=== PATIENT | female | born 1970 | race African-American/Black ===

== ENCOUNTER 2020-06-24 12:33 | Inpatient (IN) | payer MEDICAID ==
[~2020-06-24] VITALS: Ht 170.2 cm; Wt 75.5 kg
[~2020-06-24 12:33] MED LIST: DOXYCYCLINE HY100 M2 PO; LISINOPRIL10 MG PO; SENSIPAR30 MG PO
[2020-06-24] MEDS ORDERED: TOPROL XL25 MG (12:39)
[2020-06-24 13:05] LABS: BASOPHILS 0.1 % (0-2); EOSINOPHILS 1.2 % (0-7); HEMATOCRIT 24.7 % (36.0-48.0); HEMOGLOBIN 7.8 g/dL (12-16); IMMATURE GRANULOCYTES 0.3 % (0-5); LYMPHOCYTE ABS# 0.72 10x3/uL (1.18-3.74); LYMPHOCYTES 9.7 % (15-50); MCH 26.9 pg (26.0-34.0); MCHC 31.6 g/dL (31.0-37.0); MCV 85.2 fL (80.0-100.0); MONOCYTES 3.1 % (2-11); NEUTROPHIL ABS# 6.38 10x3/uL (1.56-6.13); NEUTROPHILS 85.6 % (40-80); WBC 7.5 10x3/uL (4.8-10.8)
[2020-06-24 13:08] LABS: PLATELET COUNT 134 10x3/uL (130-400)
[2020-06-24 13:17] LABS: ALBUMIN 3.1 g/dL (3.4-5.0); ANION GAP 20.9 mmol/L (8-16); BILIRUBIN - TOTAL 0.59 mg/dL (0.2-1.3); CALCIUM 8.6 mg/dL (8.5-10.1); CARBON DIOXIDE 23.5 mmol/L (21.0-32.0); CREATININE - SERUM 17.3 mg/dL (0.6-1.3); PROTEIN - SERUM 7.1 g/dL (6.4-8.2)
[2020-06-24 13:27] LABS: POTASSIUM - SERUM 7.4 mmol/L (3.5-5.1)
--- NOTE | 2020-06-24 17:33 | NUR ---
LATE ENTRY 1630: DIALYSIS TX COMPLETE WITH 2L FLUID REMOVED. PT TOLERATED TX WELL WITH NO ISSUES. POST TX VITALS BP 107/58, HR 112, RR 17. REPORT CALLED TO ANA LILIA MCDOWELL RN. PT TRANSPORT BACK TO ER.
[2020-06-24 18:51] VITALS: BP 150/81
--- NOTE | 2020-06-24 19:03 | NUR ---
PATIENT REPORT FROM OUTGOING RN. ASSUMING CARE AT THIS TIME.
[2020-06-24 20:01] VITALS: BP 141/78
--- NOTE | 2020-06-24 20:45 | NUR ---
patient status update to patient family.
--- NOTE | 2020-06-24 21:05 | NUR ---
PATIENT RESTING IN BED AND ON THE PHONE. NAD NOTED AND A&ox4.
[2020-06-24 21:42] VITALS: BP 122/77
[2020-06-25] VITALS (7 sets, daily range): BP systolic 122–155; BP diastolic 60–91; BMI 28.2
[2020-06-25 10:12] LABS: ANION GAP 20.2 mmol/L (8-16); CALCIUM 9.2 mg/dL (8.5-10.1); CARBON DIOXIDE 24.7 mmol/L (21.0-32.0)
[2020-06-25 10:16] LABS: CREATININE - SERUM 12.3 mg/dL (0.6-1.3); POTASSIUM - SERUM 5.9 mmol/L (3.5-5.1)
--- NOTE | 2020-06-25 10:39 | NUR ---
IV TO LEFT FOREARM INFILTRATED--DC'D WITH CANULA INTACT.
[2020-06-26 02:12] VITALS: BP 156/79
[2020-06-26 06:06] VITALS: BP 133/73
[2020-06-26 06:19] LABS: BASOPHILS 0.3 % (0-2); EOSINOPHILS 0.9 % (0-7); HEMATOCRIT 26.4 % (36.0-48.0); HEMOGLOBIN 8.3 g/dL (12-16); IMMATURE GRANULOCYTES 0.1 % (0-5); LYMPHOCYTE ABS# 0.74 10x3/uL (1.18-3.74); LYMPHOCYTES 9.5 % (15-50); MCH 27.1 pg (26.0-34.0); MCHC 31.4 g/dL (31.0-37.0); MCV 86.3 fL (80.0-100.0); MEAN PLATELET VOLUME 11.3 fL (7.4-10.4); MONOCYTES 8.9 % (2-11); NEUTROPHIL ABS# 6.25 10x3/uL (1.56-6.13); NEUTROPHILS 80.3 % (40-80); RBC 3.06 10x6/uL (4.00-5.40); RDW 15.9 % (11.5-14.5); WBC 7.8 10x3/uL (4.8-10.8)
[2020-06-26 06:41] LABS: ANION GAP 24.5 mmol/L (8-16); CALCIUM 8.4 mg/dL (8.5-10.1); CARBON DIOXIDE 23.1 mmol/L (21.0-32.0); CREATININE - SERUM 14.6 mg/dL (0.6-1.3)
[2020-06-26 06:49] LABS: PLATELET COUNT 176 10x3/uL (130-400)
[2020-06-26 06:54] LABS: PHOSPHOROUS 12.4 mg/dL (2.5-4.9)
[2020-06-26 06:55] LABS: POTASSIUM - SERUM 6.6 mmol/L (3.5-5.1)
[2020-06-26 21:18] VITALS: BP 147/96
[2020-06-27] VITALS (7 sets, daily range): BP systolic 108–147; BP diastolic 67–96
--- NOTE | 2020-06-27 01:20 | NUR ---
06/26/191999: PT ARRIVED TO UNIT AND TRANSFERRED FROM ER BED TO MED SURG BED. NO ACUTE DISTRESS NOTED. PT AAOX4. ON ROOM AIR. PT DENIES SOB. 20 G LEFT IV ASSESSED. IV CLEAN, DRY, INTACT AND PATENT. PT REPORTS LEFT HIP/LEG PAIN. PT GIVEN CALL LIGHT AND INSTRUCTED ON USE. EDUCATED PT TO CALL FOR ASSISTANCE. PT VERBALIZES UNDERSTANDING.
--- NOTE | 2020-06-27 01:24 | NUR ---
06/26/20 2140: PT RESTING COMFORTABLY IN BED. NO ACUTE DISTRESS NOTED. PT DENIES COMPLAINTS. CALL LIGHT WITHIN REACH. PT VERBALIZES UNDERSTANDING TO CALL FOR ASSISTANCE.
--- NOTE | 2020-06-27 01:25 | NUR ---
0040: ADMISSION HX COMPLETED. PT DENIES COMPLAINTS. ALL BELONGINGS DOCUMENTED. RESTING COMFORTABLY IN BED. NAD. CALL LIGHT WITHIN REACH. PT VERBALIZES UNDERSTANDING TO CALL FOR ASSISTANCE.
[2020-06-27] MEDS ORDERED: MOBIC7.5 MG PO (01:45)
[2020-06-27] MEDS ORDERED: SENSIPAR90 MG PO (01:46)
[2020-06-27 06:13] LABS: ANION GAP 16.4 mmol/L (8-16); CALCIUM 8.5 mg/dL (8.5-10.1); CARBON DIOXIDE 27.6 mmol/L (21.0-32.0)
[2020-06-27 06:17] LABS: CREATININE - SERUM 8.9 mg/dL (0.6-1.3)
[2020-06-27 06:19] LABS: BASOPHILS 0.1 % (0-2); EOSINOPHILS 1.7 % (0-7); HEMATOCRIT 26.1 % (36.0-48.0); IMMATURE GRANULOCYTES 0.2 % (0-5); LYMPHOCYTE ABS# 0.68 10x3/uL (1.18-3.74); LYMPHOCYTES 7.2 % (15-50); MCH 26.7 pg (26.0-34.0); MCHC 30.7 g/dL (31.0-37.0); MEAN PLATELET VOLUME 10.4 fL (7.4-10.4); MONOCYTES 6.3 % (2-11); NEUTROPHIL ABS# 8.04 10x3/uL (1.56-6.13); NEUTROPHILS 84.5 % (40-80); PLATELET COUNT 160 10x3/uL (130-400); RDW 16.3 % (11.5-14.5); WBC 9.5 10x3/uL (4.8-10.8)
--- NOTE | 2020-06-27 19:00 | NUR ---
REPORT GIVEN BY JAIME MENDOZA.
--- NOTE | 2020-06-27 21:00 | NUR ---
PT ASSESMENT COMPLETED. PT IS A RENAL PT ON DIALYSIS. SHE DIALYSED ON THURSDAY. SHE HAD MISSED A COUPLE OF TREATMENTS DUE TO WEATHER. SHE TRANSFERRED [facility]. AFTER DIALYSIS HER POTASSIUM IS DOWN SOME. SHT HAS A GORTEX GRAFT IN HER IN HER RIGHT UPPER ARM. THRILL WAS HEARD AND FELT WITH ASSESSMENT. SHE HAS A SL IN HER LEFT FOREARM. SHE FELL AND HIT HER LEFT HIP. THERE IS BRUISING NOTED AND IS PAINFUL TO PT. SHE HAD DIARRHEA EARLIER TODAY BUT SO FAR NONE. I ASKED HER TO PLEASE PUT ON HER CALL LIGHT BEFORE SHE WENT. SHE IS AWAKE AND ORIENTED AND A DELIGHT. SKIN IS DRY. NO C/O AT THIS TIME.
--- NOTE | 2020-06-27 23:00 | NUR ---
PT IS RESTING QUIETLY. NO C/O PT HAS LOW URINE OUTPUT DUE TO RENAL DISEASE/DIALYSIS. PT EYESITE VERY BAD.
--- NOTE | 2020-06-28 00:24 | NUR ---
PT C/O PAIN RATED A 10 IN HER LEFT HIP. SHE WAS GIVEN BUPRENEX 0.3 MG IV PER ORDER.
[2020-06-28 00:25] VITALS: BP 132/90
--- NOTE | 2020-06-28 01:30 | NUR ---
PT STATES HER PAIN IS MUCH LESS NOW RATING IT A 5.
[2020-06-28 04:01] VITALS: BP 151/88
--- NOTE | 2020-06-28 05:28 | NUR ---
PT IS RESTING WELL WITHOUT C/O
[2020-06-28 07:11] LABS: % SATURATION 29 % (15-55); IRON 41 ug/dl (35-150); TOTAL IRON BIND CAPACITY 139 ug/dl (260-445); UNSAT IRON BIND CAPACITY 98 ug/dl (150-375)
[2020-06-28 07:16] LABS: CALCIUM 8.3 mg/dL (8.5-10.1); CARBON DIOXIDE 24.8 mmol/L (21.0-32.0); PHOSPHOROUS 8.8 mg/dL (2.5-4.9); POTASSIUM - SERUM 4.8 mmol/L (3.5-5.1)
[2020-06-28 07:17] LABS: CREATININE - SERUM 11.4 mg/dL (0.6-1.3)
[2020-06-28 07:37] LABS: BASOPHILS 0.2 % (0-2); EOSINOPHILS 3.2 % (0-7); HEMATOCRIT 26.9 % (36.0-48.0); HEMOGLOBIN 8.3 g/dL (12-16); IMMATURE GRANULOCYTES 0.2 % (0-5); LYMPHOCYTE ABS# 0.84 10x3/uL (1.18-3.74); LYMPHOCYTES 9.5 % (15-50); MCH 26.9 pg (26.0-34.0); MCHC 30.9 g/dL (31.0-37.0); MCV 87.1 fL (80.0-100.0); MEAN PLATELET VOLUME 11.2 fL (7.4-10.4); MONOCYTES 7.6 % (2-11); NEUTROPHIL ABS# 6.98 10x3/uL (1.56-6.13); NEUTROPHILS 79.3 % (40-80); RBC 3.09 10x6/uL (4.00-5.40); RDW 16.4 % (11.5-14.5); WBC 8.8 10x3/uL (4.8-10.8)
[2020-06-28 07:38] LABS: PLATELET COUNT 201 10x3/uL (130-400)
[2020-06-28 08:13] VITALS: BP 149/84
--- NOTE | 2020-06-28 16:37 | NUR ---
I have reviewed this patient and I concur with the Shift Assessment completed by the Licensed Practical Nurse today this shift.
[2020-06-28 18:35] VITALS: BP 133/88
--- NOTE | 2020-06-28 19:00 | NUR ---
REPORT GIVEN BY GLENDY MARTINS
--- NOTE | 2020-06-28 20:15 | NUR ---
PT ASSESSMENT COMPLETED. PT DIALIZED TODAY AND IS FEELING WELL THIS EVENING. SHE HAS A SL IN THE LEFT FOREARM. PT HAS A RIGHT GORTEX GRAFT. SKIN IS WARM AND DRY. PT HAS LITTLE URINE OUTPUT.
--- NOTE | 2020-06-28 20:30 | NUR ---
PT REQUESTED HER PAIN MED AND ASKED FOR THE NEW DRUG ZANAFLEX. THESE WERE GIVEN. THE PAIN MED WAS IV AND THE ZANAFLEX PO.
[2020-06-28 21:05] VITALS: BP 129/87
--- NOTE | 2020-06-29 | NUR ---
PT IS RESTING QUIETLY. NO C/O.
--- NOTE | 2020-06-29 01:45 | NUR ---
PT IS RESTING QUIETLY WITH HER EYES CLOSED. RESPIRATIONS ARE EVEN AND UNLABORED.
[2020-06-29 05:15] VITALS: BP 134/94
--- NOTE | 2020-06-29 05:23 | NUR ---
PT IS RESTING COMFORTABLY IN HER BED THAT IS ELEVATED TO ABOUT 45 DEGREES. NO C/O OR NEEDS AT THIS TIME.
[2020-06-29 06:26] LABS: CARBON DIOXIDE 27.3 mmol/L (21.0-32.0); PHOSPHOROUS 7.8 mg/dL (2.5-4.9); POTASSIUM - SERUM 4.3 mmol/L (3.5-5.1)
[2020-06-29 06:32] LABS: CREATININE - SERUM 8.1 mg/dL (0.6-1.3)
[2020-06-29 06:36] LABS: BASOPHILS 0.3 % (0-2); EOSINOPHILS 4.7 % (0-7); HEMATOCRIT 25.5 % (36.0-48.0); HEMOGLOBIN 7.9 g/dL (12-16); IMMATURE GRANULOCYTES 0.3 % (0-5); LYMPHOCYTE ABS# 0.71 10x3/uL (1.18-3.74); LYMPHOCYTES 11.2 % (15-50); MCH 27.1 pg (26.0-34.0); MCV 87.6 fL (80.0-100.0); MEAN PLATELET VOLUME 11.3 fL (7.4-10.4); MONOCYTES 9.6 % (2-11); NEUTROPHIL ABS# 4.68 10x3/uL (1.56-6.13); NEUTROPHILS 73.9 % (40-80); PLATELET COUNT 189 10x3/uL (130-400); RBC 2.91 10x6/uL (4.00-5.40)
[2020-06-29 06:37] LABS: WBC 6.3 10x3/uL (4.8-10.8)
--- NOTE | 2020-06-29 07:10 | NUR ---
REC'D IN BED AWAKE AND ALERT. RESP EVEN AND UNLABORED WITH NO DISTRESS NOTED. CAN EXPRESS NEEDS AND WANTS. NO C/O NOTED OR VOICED. ASSESSMENT COMPLETED. C/L IN REACH AT BEDSIDE.
--- NOTE | 2020-06-29 07:10 | NUR ---
REC'D IN BED AWAKE AND ALERT. RESP EVEN AND UNLABORED WITH NO DISTRESS NOTED CAN EXPRESS NEEDS AND WANTS. NO C/O NOTED OR VOICED. ASSESSMENT COMPLETED. C IN REACH AT BEDSIDE.
[2020-06-29 10:26] VITALS: BP 167/88
--- NOTE | 2020-06-29 13:01 | NUR ---
Nutrition follow-up: Pt receiving a renal diet; po intake ~25% of some meals Labs reviewed Wt: 180# +BM Increase pain in hip after fall PO intake poor at this time Recommendations: Pt might benefit from an appetite stimulant RDN will order Nepro with meals RDN follow-up: 07/03/20
[2020-06-29 15:12] VITALS: BP 173/89
--- NOTE | 2020-06-29 21:00 | NUR ---
AROUSES EASILY TO VERBAL STIMULI. RESP EVEN AND UNALBORED. NO DISTRESS NOTED. CL IN REACH
[2020-06-29 21:11] VITALS: BP 154/76
[2020-06-30 00:54] VITALS: BP 149/80
--- NOTE | 2020-06-30 05:09 | NUR ---
I have reviewed this patient and I concur with the Shift Assessment completed by the Licensed Practical Nurse today this shift.
[2020-06-30 06:05] VITALS: BP 116/77
[2020-06-30 06:46] LABS: ANION GAP 18.2 mmol/L (8-16); CALCIUM 9.2 mg/dL (8.5-10.1); CARBON DIOXIDE 25.2 mmol/L (21.0-32.0); CREATININE - SERUM 10.5 mg/dL (0.6-1.3); PHOSPHOROUS 8.3 mg/dL (2.5-4.9); POTASSIUM - SERUM 4.4 mmol/L (3.5-5.1)
[2020-06-30 06:52] LABS: BASOPHILS 0.9 % (0-2); EOSINOPHILS 7.6 % (0-7); HEMATOCRIT 26.1 % (36.0-48.0); HEMOGLOBIN 8.2 g/dL (12-16); IMMATURE GRANULOCYTES 0.2 % (0-5); LYMPHOCYTE ABS# 0.82 10x3/uL (1.18-3.74); LYMPHOCYTES 14.9 % (15-50); MCH 26.9 pg (26.0-34.0); MCHC 31.4 g/dL (31.0-37.0); MCV 85.6 fL (80.0-100.0); MEAN PLATELET VOLUME 10.6 fL (7.4-10.4); MONOCYTES 10.9 % (2-11); NEUTROPHIL ABS# 3.61 10x3/uL (1.56-6.13); NEUTROPHILS 65.5 % (40-80); PLATELET COUNT 230 10x3/uL (130-400); RBC 3.05 10x6/uL (4.00-5.40); RDW 16.2 % (11.5-14.5); WBC 5.5 10x3/uL (4.8-10.8)
--- NOTE | 2020-06-30 07:15 | NUR ---
REC'D IN BED AWAKE AND ALERT. RESP EVEN AND UNLABORED WITH NO DISTRESS NOTED. CAN EXPRESS NEEDS AND WANTS. NO C/O NOTED OR VOICED. DENIES ANY PAIN OR DISCOMFORT AT THIS TIME. ASSESSMENT COMPLETED.C/L IN REACH AT BEDSIDE
[2020-06-30 08:36] VITALS: BP 135/72
--- NOTE | 2020-06-30 10:18 | NUR ---
I have reviewed this patient and I concur with the Shift Assessment completed by the Licensed Practical Nurse today this shift.
--- NOTE | 2020-06-30 13:45 | NUR ---
JUST ARRIVED BACK FROM DAILYSIS. NO C/O NOTED OR VOICED.
--- NOTE | 2020-06-30 16:27 | NUR ---
REPORT CALLED TO VANNESSA PIKE. DIALSIS TREATMENT TOLERATED WELL WITHOUT PROBLEMS
[2020-06-30 17:06] VITALS: BP 113/81
--- NOTE | 2020-06-30 19:30 | NUR ---
PATIENT ALERT AND ORIENTED LAYING IN SUPINE POSITION WHEN ENTERING THE ROOM. ASSESSMENT PERFORMED AND COMPLETED. PATIENT COMPLAINS OF BACK PAIN, STATES "I HAD AN MRI TODAY AND MY BACK HAS BEEN REALLY BOTHERING ME WORSE THAN NORMAL SINCE." PATIENT DENIES BUPRENEX WHEN EXPLAINED AVAILABILITY. EXPLAINED ZANAFLEX AVAILABLE AND MAY AID IN PAIN CONTROL, PATIENT ASKED FOR IT AT THIS TIME.
--- NOTE | 2020-06-30 19:43 | NUR ---
ADMINISTERED ZANAFLEX. PATIENT TOLERATED PO MEDICATIONS WITH NO ISSUES. DENIES QUESTIONS OR CONCERNS AT THIS TIME. CALL LIGHT CLOSE. CPOC.
[2020-06-30 20:11] VITALS: BP 137/85
--- NOTE | 2020-06-30 23:45 | NUR ---
ROUNDING ON PATIENT, AWAKE. DENIES NEEDS AT THIS TIME. DENIES PAIN AT THIS TIME. ASKED PATIENT IF SHE WOULD LIKE BATH, REQUESTS FOR AM BATHING ASSISTANCE. NO FURTHER NEEDS DISCUSSED OR MENTIONED AT THIS TIME. CPOC.
[2020-07-01 01:17] VITALS: BP 135/76
[2020-07-01 04:56] VITALS: BP 129/93
--- NOTE | 2020-07-01 09:00 | NUR ---
ALERT AND ORIENTED X4 WITH VISUAL IMPAIRMENT NOTED BUT ABLE TO SEE SHAPES. SET UP ASSSIT NEEDED WITH MEALS. BRUISING NOTED TO RIGHT HIP BUT DENIES ANY PAIN OR DISCOMFORT. RIGHT ARM RESERVE WITH BUPRENEX GIVEN FOR BACK PAIN MANAGEMENT 11/17 A DN EFFCTIVE 07/18. ENCOURAGED TO USE CALL LIGHT FOR ASSSIT.
[2020-07-01 10:34] VITALS: BP 141/81
[2020-07-01 11:00] VITALS: BP 120/62
[2020-07-01 16:00] VITALS: BP 110/65
[2020-07-01 19:58] VITALS: BP 101/63
--- NOTE | 2020-07-01 21:00 | NUR ---
LYING QUEITLY WITH NO CMPLAINTS VOICED. RESP UNALBORED. NO DISTRESS NOTED. SL TO LEFT HAND INTACT WITHOUT REDNESS OR EDEMA NOTED. CL IN REACH
[2020-07-02 01:51] VITALS: BP 125/95
[2020-07-02 06:24] VITALS: BP 123/82
[2020-07-02 08:25] VITALS: BP 141/81
--- NOTE | 2020-07-02 12:16 | NUR ---
I have reviewed this patient and I concur with the Shift Assessment completed by the Licensed Practical Nurse today this shift.
[2020-07-02 12:29] VITALS: BP 115/82
[2020-07-02 16:27] VITALS: BP 122/76
[2020-07-02 19:59] VITALS: BP 116/70
[2020-07-02 20:19] VITALS: Ht 170.2 cm; Wt 75.5 kg
--- NOTE | 2020-07-03 | NUR ---
FAN PER REQUEST. PT REPORTS SIGNIFICAN RELIEF AFTER STEROID SHOTS. NO COMPLAINTS AT THIS TIME, CTM.
[2020-07-03 00:41] VITALS: BP 121/68
--- NOTE | 2020-07-03 02:56 | NUR ---
I have reviewed this patient and I concur with the Shift Assessment completed by the Licensed Practical Nurse today this shift.
[2020-07-03 04:39] VITALS: BP 139/79
--- NOTE | 2020-07-03 08:00 | NUR ---
REC'D IN BED AWAKE AND ALERT. RESP EVEN AND UNLABORED WITH NO DISTRESS NOTED. CAN EXPRESS NEEDS AND WANT. NO C/O NOTED OR VOICED. ASSESSMENT COMPLETED. C/L IN REACH AT BEDSIDE.
[2020-07-03 08:32] VITALS: BP 125/68
[2020-07-03 10:48] LABS: BASOPHILS 0.1 % (0-2); EOSINOPHILS 0.1 % (0-7); HEMATOCRIT 25.2 % (36.0-48.0); IMMATURE GRANULOCYTES 0.6 % (0-5); LYMPHOCYTE ABS# 0.52 10x3/uL (1.18-3.74); LYMPHOCYTES 6.4 % (15-50); MCH 26.7 pg (26.0-34.0); MCHC 31.7 g/dL (31.0-37.0); MEAN PLATELET VOLUME 10.9 fL (7.4-10.4); MONOCYTES 2.6 % (2-11); NEUTROPHIL ABS# 7.35 10x3/uL (1.56-6.13); NEUTROPHILS 90.2 % (40-80); PLATELET COUNT 265 10x3/uL (130-400); RDW 15.8 % (11.5-14.5); WBC 8.2 10x3/uL (4.8-10.8)
[2020-07-03 10:49] LABS: CALCIUM 9.3 mg/dL (8.5-10.1); CARBON DIOXIDE 23.7 mmol/L (21.0-32.0); CREATININE - SERUM 12.3 mg/dL (0.6-1.3); PHOSPHOROUS 7.3 mg/dL (2.5-4.9); POTASSIUM - SERUM 4.7 mmol/L (3.5-5.1)
--- NOTE | 2020-07-03 14:46 | NUR ---
REPORT CALLED TO Al HOYT RN BEFOR PATIENT PICKED UP BY CRISTIN HAYES AND Al HOYT RN. PATIENT IS ALERT AND ORIENTED AT TIME OF DISCHARGE FROM DIALYSIS.
[2020-07-03 18:57] VITALS: BP 124/79
[2020-07-03 20:44] VITALS: BP 148/76
--- NOTE | 2020-07-04 03:30 | NUR ---
I have reviewed this patient and I concur with the Shift Assessment completed by the Licensed Practical Nurse today this shift.
[2020-07-04 04:49] VITALS: BP 117/72
--- NOTE | 2020-07-04 06:50 | MORECARE ---
CASE MANAGEMENT DISCHARGE SUMMARY PATIENT: ENID MILLER UNIT: [id number] ADM DATE: 06/24/20 AGE: 50 : 68 SEX: F ROOM/BED: D.2214 AUTHOR: MITALI PAYNE PHYSICIAN: REFERRING PHYSICIAN: DINA RICHARDS DO DATE OF SERVICE: 07/04/20 Discharge Plan Patient Name[facility] [facility] 1970 Planned Disposition: Anticipated Discharge Date: Discharge Date: Expected LOS: Initial Reviewer: [email or web address] Initial Review Date: 06/24/2020 Generated: 07/04/20 7:50 am Patient Name: ENID MILLER Page [phone] at 0650 All edits/amendments must be made on the electronic document DICTATION DATE: 07/04/2050 INDIGO VAT TENDER CLOTH: CRYSTAL 07/04/2050 RPT#: [id number] DC DATE: STATUS: ADM IN [facility] [address] [place] [address] END OF REPORT
--- NOTE | 2020-07-04 06:57 | MORECARE ---
CASE MANAGEMENT DISCHARGE SUMMARY PATIENT: ENID MILLER UNIT: [id number] ADM DATE: 06/24/20 AGE: 50 : 68 SEX: F ROOM/BED: D.2214 AUTHOR: MITALI PAYNE PHYSICIAN: REFERRING PHYSICIAN: DINA RICHARDS DO DATE OF SERVICE: 07/04/20 Discharge Plan Patient Name: ENID MILLER [facility] [facility] 1970 Planned Disposition: Anticipated Discharge Date: Discharge Date: Expected LOS: Initial Reviewer: [email or web address] Initial Review Date: 06/24/2020 Generated: 07/04/20 7:57 am Comments DCP- Discharge Planning Updated by [email or web address]: Yelitza Benites on 07/04/20 5:[address] ROSENBERG APPROACHED CM THIS AM AND WANT THE PATIENT TO GO TO REHAB, I EXPLAINED TO HIM THAT HER ONLY OPTION IF SHE HAS ANY DAYS LEFT WILL BE [facility]. HE WOULD LIKE HER TO GO THERE IF POSSIBLE REFERRAL FAXED TO [facility] External Providers External Provider: [facility] Next Contact Date: Service Request Date: Service Type: Resolution: Reviewer: Comments: Last DP export: 07/04/20 5:50 a Patient Name: ENID MILLER Page [phone] at 0657 All edits/amendments must be made on the electronic document DICTATION DATE: 07/04/20656 HEEL BUFFER: CRYSTAL 07/04/20656 RPT#: [id number] DC DATE: STATUS: ADM IN [facility] [address] [place] [address] END OF REPORT
[2020-07-04 08:44] VITALS: BP 127/79
[2020-07-04 12:30] VITALS: BP 146/79
--- NOTE | 2020-07-04 14:18 | NUR ---
Nutrition follow-up: Diet order: renal PO intake 25-50% of meals Labs reviewed Wt: 166# Pt had dialysis 07/03/20; today PO4: 7.3 PO intake continues to be poor Recommendations: Pt may benefit from an appetite stimulant Nepro ordered with meals RDN follow-up: 07/09/20
[2020-07-04 17:24] VITALS: BP 123/68
--- NOTE | 2020-07-04 19:45 | NUR ---
PATIENT IN BED WITH IV INTACT. NO COMPLAINTS OR SIGNS OF DISTRESS. SITTING UP IN BED WITH CALL LIGHT WITHIN REACH.
[2020-07-04 20:11] VITALS: BP 144/63
--- NOTE | 2020-07-04 23:10 | NUR ---
awake, alert lying in bed talking on the phone, no issues reported
[2020-07-05] VITALS: BP 119/74
[2020-07-05 05:18] VITALS: BP 128/68
[2020-07-05 08:25] VITALS: BP 133/69
[2020-07-05 11:48] VITALS: BP 127/75
[2020-07-05] MEDS ORDERED: ZANAFLEX4 MG PO (15:03)
[2020-07-05] MEDS ORDERED: TOPROL XL25 MG PO (15:03)
[2020-07-05] MEDS ORDERED: COLACE100 MG PO (15:04)
[2020-07-05] MEDS ORDERED: HYDROCODONE-AC1 EAC2 PO (15:04)
[2020-07-05] MEDS ORDERED: TUMS PO (15:04)
[2020-07-05] MEDS ORDERED: VELTASSA8.4 GM PO (15:04)
[2020-07-05] MEDS ORDERED: SENSIPAR30 MG PO (15:05)
[2020-07-05 15:58] VITALS: BP 100/70
--- NOTE | 2020-07-05 17:00 | NUR ---
REPORT GIVEN TO NURSE AT [facility] AT THIS TIME.
--- NOTE | 2020-07-05 17:19 | MORECARE ---
CASE MANAGEMENT DISCHARGE SUMMARY PATIENT: ENID MILLER UNIT: [id number] ADM DATE: 06/24/20 AGE: 50 : 68 SEX: F ROOM/BED: D.2214 AUTHOR: MITALI PAYNE PHYSICIAN: REFERRING PHYSICIAN: DINA RICHARDS DO DATE OF SERVICE: 07/05/20 Discharge Plan Patient Name: ENID MILLER Facility: [facility]:[place] : 1970 Planned Disposition: Anticipated Discharge Date: Discharge Date: Expected LOS: Initial Reviewer: [email or web address] Initial Review Date: 06/24/2020 Generated: 07/05/20 6:19 pm Comments DCP- Discharge Planning Updated by [email or web address]: Yelitza Benites on 07/05/20 4:[address] PATIENT WILL BE DISCHARGED TO [facility] INPATIENT TODAY, TO ROOM 112 THE NURSE WILL CALL REPORT HAS CALLED RIGOBERTO MILLER TO LET HER KNOW ABOUT THE DISCHARGE [facility] WILL PICK THE PATIENT UP AT 1800 DCP- Discharge Planning Updated by [email or web address]: Yelitza Benites on 07/04/20 5:[address] ROSENBERG APPROACHED CM THIS AM AND WANT THE PATIENT TO GO TO REHAB, I EXPLAINED TO HIM THAT HER ONLY OPTION IF SHE HAS ANY DAYS LEFT WILL BE [facility]. HE WOULD LIKE HER TO GO THERE IF POSSIBLE REFERRAL FAXED TO [facility] Last DP export: 07/04/20 5:57 a Patient Name: ENID MILLER Page [phone] at 1719 All edits/amendments must be made on the electronic document DICTATION DATE: 07/05/201718 YARDING ENGINEER: CRYSTAL 07/05/201718 RPT#: [id number] DC DATE: STATUS: ADM IN [facility] [address] [place] [address] END OF REPORT
--- NOTE | 2020-07-05 18:00 | NUR ---
PATIENT RECIEVED DC INSTRUCTIONS. VERBALIZED UNDERSTANDING. NO QUESTIONS AT THIS TIME. IV REMOVED WITH CATH TIP INTACT. CALL LIGHT WITHIN REACH. WAITING FOR TRANSPORTATION.
--- NOTE | 2020-07-05 18:21 | NUR ---
PATIENT ASSISTED INTO WC WITH HELP. TAKEN DOWN TO VEHICLE AT THIS TIME WITH PERSONAL BELONGINGS TO TRANSPORT TO REHAB.
== END 2020-07-05 18:23 | DRG 640 ==
LOC: D.ER 12:33 → D.MS 15:45 → D.EDHOLD 15:45 → D.MS 06-26 17:21
PROVIDERS: Family Medicine; Internal Medicine Nephrology; ADMIT Internal Medicine; ATTEND Internal Medicine
DX: E87.5 Hyperkalemia (principal); N18.6 End stage renal disease; I12.0 Hypertensive chronic kidney disease with stage 5 chronic kidney disease or end stage renal disease; N25.81 Secondary hyperparathyroidism of renal origin; Z99.2 Dependence on renal dialysis; Z91.15 Patient's noncompliance with renal dialysis; M54.30 Sciatica, unspecified side; E83.39 Other disorders of phosphorus metabolism; H54.7 Unspecified visual loss; M25.552 Pain in left hip; M54.16 Radiculopathy, lumbar region

== ENCOUNTER 2020-07-31 13:04 | Inpatient (IN) | payer MEDICAID ==
[~2020-07-31 13:04] MED LIST changes: +COLACE100 MG PO; +HYDROCODONE-AC1 EAC2 PO; +MOBIC7.5 MG PO; +SENSIPAR90 MG PO; +TOPROL XL25 MG; +TOPROL XL25 MG PO; +TUMS PO; +VELTASSA8.4 GM PO; +ZANAFLEX4 MG PO
[2020-07-31 13:48] LABS: BASOPHILS 0.1 % (0-2); HEMATOCRIT 24.2 % (36.0-48.0); HEMOGLOBIN 7.8 g/dL (12-16); IMMATURE GRANULOCYTES 0.3 % (0-5); LYMPHOCYTES 3.9 % (15-50); MCH 27.6 pg (26.0-34.0); MCHC 32.2 g/dL (31.0-37.0); MCV 85.5 fL (80.0-100.0); MEAN PLATELET VOLUME 11.4 fL (7.4-10.4); MONOCYTES 1.5 % (2-11); NEUTROPHIL ABS# 7.22 10x3/uL (1.56-6.13); NEUTROPHILS 93.2 % (40-80); RBC 2.83 10x6/uL (4.00-5.40); RDW 16.8 % (11.5-14.5); WBC 7.8 10x3/uL (4.8-10.8)
[2020-07-31 13:58] LABS: PLATELET COUNT 157 10x3/uL (130-400)
[2020-07-31 14:37] LABS: ALBUMIN 2.7 g/dL (3.4-5.0); BILIRUBIN - TOTAL 0.43 mg/dL (0.2-1.3); CALCIUM 9.5 mg/dL (8.5-10.1); CARBON DIOXIDE 20.8 mmol/L (21.0-32.0); PROTEIN - SERUM 6.8 g/dL (6.4-8.2)
[2020-07-31 14:40] LABS: POTASSIUM - SERUM 9.8 mmol/L (3.5-5.1)
[2020-08-01 06:21] LABS: CALCIUM 9.3 mg/dL (8.5-10.1); MAGNESIUM - SERUM 2.8 mg/dL (1.8-2.4); PHOSPHOROUS 7.4 mg/dL (2.5-4.9)
[2020-08-01 06:23] LABS: ANION GAP 15.2 mmol/L (8-16); CARBON DIOXIDE 29.9 mmol/L (21.0-32.0); CREATININE - SERUM 11.4 mg/dL (0.6-1.3)
[2020-08-01 06:24] LABS: POTASSIUM - SERUM 6.1 mmol/L (3.5-5.1)
[2020-08-01 06:31] LABS: BASOPHILS 0.2 % (0-2); EOSINOPHILS 8.3 % (0-7); HEMATOCRIT 22.5 % (36.0-48.0); IMMATURE GRANULOCYTES 0.3 % (0-5); LYMPHOCYTE ABS# 0.51 10x3/uL (1.18-3.74); LYMPHOCYTES 8.9 % (15-50); MCH 26.8 pg (26.0-34.0); MCHC 31.1 g/dL (31.0-37.0); MCV 86.2 fL (80.0-100.0); MEAN PLATELET VOLUME 10.8 fL (7.4-10.4); MONOCYTES 8.3 % (2-11); NEUTROPHIL ABS# 4.25 10x3/uL (1.56-6.13); PLATELET COUNT 153 10x3/uL (130-400); RBC 2.61 10x6/uL (4.00-5.40); RDW 16.6 % (11.5-14.5); WBC 5.8 10x3/uL (4.8-10.8)
[2020-08-02 05:47] LABS: BASOPHILS 0.2 % (0-2); EOSINOPHILS 0 % (0-7); HEMOGLOBIN 8.4 g/dL (12-16); IMMATURE GRANULOCYTES 0.4 % (0-5); LYMPHOCYTE ABS# 0.82 10x3/uL (1.18-3.74); LYMPHOCYTES 14.5 % (15-50); MCH 27.5 pg (26.0-34.0); MCHC 30.8 g/dL (31.0-37.0); MONOCYTES 6.4 % (2-11); NEUTROPHIL ABS# 4.45 10x3/uL (1.56-6.13); NEUTROPHILS 78.5 % (40-80); RBC 3.06 10x6/uL (4.00-5.40); RDW 15.8 % (11.5-14.5); WBC 5.7 10x3/uL (4.8-10.8)
[2020-08-02 05:51] LABS: HEMATOCRIT 27.3 % (36.0-48.0); MCV 89.2 fL (80.0-100.0); PLATELET COUNT 187 10x3/uL (130-400)
[2020-08-02 06:09] LABS: ANION GAP 15.7 mmol/L (8-16); CALCIUM 8.7 mg/dL (8.5-10.1); CARBON DIOXIDE 28.5 mmol/L (21.0-32.0)
[2020-08-02 06:14] LABS: CREATININE - SERUM 6.8 mg/dL (0.6-1.3); PHOSPHOROUS 5.3 mg/dL (2.5-4.9); POTASSIUM - SERUM 4.2 mmol/L (3.5-5.1)
[2020-08-04 05:03] LABS: BASOPHILS 0.3 % (0-2); EOSINOPHILS 0 % (0-7); HEMATOCRIT 29.7 % (36.0-48.0); HEMOGLOBIN 9.4 g/dL (12-16); IMMATURE GRANULOCYTES 45.6 % (0-5); LYMPHOCYTE ABS# 0.59 10x3/uL (1.18-3.74); LYMPHOCYTES 6.1 % (15-50); MCH 28.5 pg (26.0-34.0); MCHC 31.6 g/dL (31.0-37.0); MEAN PLATELET VOLUME 10.9 fL (7.4-10.4); MONOCYTES 6.6 % (2-11); NEUTROPHIL ABS# 3.98 10x3/uL (1.56-6.13); NEUTROPHILS 41.4 % (40-80); RDW 15.8 % (11.5-14.5)
[2020-08-04 05:10] LABS: PLATELET COUNT 131 10x3/uL (130-400); WBC 9.6 10x3/uL (4.8-10.8)
[2020-08-04 05:31] LABS: ANION GAP 20.8 mmol/L (8-16); CALCIUM 9.5 mg/dL (8.5-10.1); CARBON DIOXIDE 23.4 mmol/L (21.0-32.0); PHOSPHOROUS 5.9 mg/dL (2.5-4.9)
[2020-08-04 05:38] LABS: CREATININE - SERUM 9.1 mg/dL (0.6-1.3); POTASSIUM - SERUM 5.2 mmol/L (3.5-5.1)
[2020-08-05 09:28] LABS: HEMOGLOBIN 9.1 g/dL (12-16); LYMPHOCYTE ABS# 0.61 10x3/uL (1.18-3.74); MCH 27.8 pg (26.0-34.0); MCHC 32.5 g/dL (31.0-37.0); NEUTROPHIL ABS# 3.88 10x3/uL (1.56-6.13); RBC 3.27 10x6/uL (4.00-5.40); RDW 15.9 % (11.5-14.5); WBC 8.3 10x3/uL (4.8-10.8)
[2020-08-05 10:05] LABS: ALBUMIN 2.4 g/dL (3.4-5.0); ANION GAP 20.6 mmol/L (8-16); BILIRUBIN - TOTAL 0.48 mg/dL (0.2-1.3); CALCIUM 9.1 mg/dL (8.5-10.1); CARBON DIOXIDE 23.5 mmol/L (21.0-32.0); CREATININE - SERUM 7.5 mg/dL (0.6-1.3); PHOSPHOROUS 4.9 mg/dL (2.5-4.9); POTASSIUM - SERUM 5.1 mmol/L (3.5-5.1); PROTEIN - SERUM 6.4 g/dL (6.4-8.2)
[2020-08-05 10:15] LABS: MCV 85.6 fL (80.0-100.0)
[2020-08-05 10:16] LABS: PLATELET COUNT 84 10x3/uL (130-400)
[2020-08-05 10:22] LABS: EOSINOPHILS 2 % (0-7); LYMPHOCYTES 8 % (15-50); MONOCYTES 10 % (2-11); NEUTROPHILS 77 % (40-80); PLATELET ESTIMATE DECREASED
[2020-08-05 10:23] LABS: SMUDGE CELLS OCC
[2020-08-05 10:24] LABS: PLATELET MORPHOLOGY PLT CLUMPS PRESENT
[2020-08-06 09:42] LABS: BASOPHILS 0.2 % (0-2); EOSINOPHILS 0.3 % (0-7); HEMATOCRIT 24.7 % (36.0-48.0); HEMOGLOBIN 7.9 g/dL (12-16); IMMATURE GRANULOCYTES 0.3 % (0-5); LYMPHOCYTE ABS# 0.52 10x3/uL (1.18-3.74); LYMPHOCYTES 8.9 % (15-50); MCH 27.5 pg (26.0-34.0); MCV 86.1 fL (80.0-100.0); MEAN PLATELET VOLUME 11.1 fL (7.4-10.4); NEUTROPHIL ABS# 4.42 10x3/uL (1.56-6.13); NEUTROPHILS 75.3 % (40-80); PLATELET COUNT 100 10x3/uL (130-400); RBC 2.87 10x6/uL (4.00-5.40); RDW 15.9 % (11.5-14.5); WBC 5.9 10x3/uL (4.8-10.8)
[2020-08-06 09:54] LABS: ALBUMIN 2.1 g/dL (3.4-5.0); BILIRUBIN - TOTAL 0.35 mg/dL (0.2-1.3); CALCIUM 8.5 mg/dL (8.5-10.1); CARBON DIOXIDE 27.2 mmol/L (21.0-32.0); PHOSPHOROUS 4.6 mg/dL (2.5-4.9); PROTEIN - SERUM 6.5 g/dL (6.4-8.2)
[2020-08-06 10:06] LABS: ANION GAP 14.1 mmol/L (8-16); CREATININE - SERUM 9.7 mg/dL (0.6-1.3); POTASSIUM - SERUM 4.3 mmol/L (3.5-5.1)
[2020-08-07 06:22] LABS: BASOPHILS 0.2 % (0-2); EOSINOPHILS 0.6 % (0-7); HEMATOCRIT 21.7 % (36.0-48.0); LYMPHOCYTE ABS# 0.54 10x3/uL (1.18-3.74); LYMPHOCYTES 10.2 % (15-50); MCH 27.7 pg (26.0-34.0); MCHC 31.8 g/dL (31.0-37.0); MCV 87.1 fL (80.0-100.0); MEAN PLATELET VOLUME 11.6 fL (7.4-10.4); MONOCYTES 18.8 % (2-11); NEUTROPHIL ABS# 3.73 10x3/uL (1.56-6.13); NEUTROPHILS 70.2 % (40-80); PLATELET COUNT 81 10x3/uL (130-400); RBC 2.49 10x6/uL (4.00-5.40); RDW 16.1 % (11.5-14.5); WBC 5.3 10x3/uL (4.8-10.8)
[2020-08-07 06:34] LABS: HEMOGLOBIN 6.9 g/dL (12-16)
[2020-08-07 06:37] LABS: ANION GAP 12.2 mmol/L (8-16); BILIRUBIN - TOTAL 0.32 mg/dL (0.2-1.3); CALCIUM 8.2 mg/dL (8.5-10.1); CARBON DIOXIDE 29.3 mmol/L (21.0-32.0); PROTEIN - SERUM 5.5 g/dL (6.4-8.2)
[2020-08-07 06:38] LABS: CREATININE - SERUM 5.7 mg/dL (0.6-1.3); POTASSIUM - SERUM 3.5 mmol/L (3.5-5.1)
[2020-08-08 06:45] LABS: HEMATOCRIT 29.5 % (36.0-48.0); HEMOGLOBIN 9.7 g/dL (12-16); LYMPHOCYTE ABS# 0.76 10x3/uL (1.18-3.74); MCH 28.2 pg (26.0-34.0); MCHC 32.9 g/dL (31.0-37.0); MCV 85.8 fL (80.0-100.0); PLATELET COUNT 104 10x3/uL (130-400); RBC 3.44 10x6/uL (4.00-5.40); RDW 16.3 % (11.5-14.5); WBC 8.9 10x3/uL (4.8-10.8)
[2020-08-08 07:07] LABS: ALBUMIN 2.1 g/dL (3.4-5.0); ANION GAP 14.7 mmol/L (8-16); BILIRUBIN - TOTAL 0.4 mg/dL (0.2-1.3); CALCIUM 8.9 mg/dL (8.5-10.1); CARBON DIOXIDE 27.5 mmol/L (21.0-32.0); PHOSPHOROUS 3.8 mg/dL (2.5-4.9); POTASSIUM - SERUM 3.2 mmol/L (3.5-5.1)
[2020-08-08 12:19] LABS: LYMPHOCYTES 11 % (15-50); MONOCYTES 20 % (2-11); NEUTROPHILS 67 % (40-80)
[2020-08-08 12:20] LABS: PLATELET ESTIMATE DECREASED; ROULEAUX OCC; SMUDGE CELLS OCC
[2020-08-09 06:18] LABS: BASOPHILS 0.3 % (0-2); EOSINOPHILS 0 % (0-7); HEMATOCRIT 30.4 % (36.0-48.0); HEMOGLOBIN 9.6 g/dL (12-16); IMMATURE GRANULOCYTES 1.1 % (0-5); LYMPHOCYTE ABS# 0.78 10x3/uL (1.18-3.74); LYMPHOCYTES 7.5 % (15-50); MCH 27.9 pg (26.0-34.0); MCHC 31.6 g/dL (31.0-37.0); MCV 88.4 fL (80.0-100.0); MEAN PLATELET VOLUME 12.9 fL (7.4-10.4); MONOCYTES 15.3 % (2-11); NEUTROPHIL ABS# 7.86 10x3/uL (1.56-6.13); NEUTROPHILS 75.8 % (40-80); PLATELET COUNT 145 10x3/uL (130-400); RBC 3.44 10x6/uL (4.00-5.40); RDW 16.2 % (11.5-14.5); WBC 10.4 10x3/uL (4.8-10.8)
[2020-08-09 06:29] LABS: ALBUMIN 1.9 g/dL (3.4-5.0); BILIRUBIN - TOTAL 0.47 mg/dL (0.2-1.3); CALCIUM 8.8 mg/dL (8.5-10.1); CARBON DIOXIDE 28.9 mmol/L (21.0-32.0); CREATININE - SERUM 4.7 mg/dL (0.6-1.3); PROTEIN - SERUM 6.9 g/dL (6.4-8.2); VANCOMYCIN - RANDOM 19.4 ug/mL (10.0-20.0)
[2020-08-09 06:31] LABS: POTASSIUM - SERUM 3.9 mmol/L (3.5-5.1)
[2020-08-09 11:51] LABS: APTT 40.5 SECONDS (22.8-39.4); INR 1.11 (0.85-1.17); PROTIME 13.2 SECONDS (11.6-15.0)
[2020-08-10 04:02] LABS: BASOPHILS 0.2 % (0-2); EOSINOPHILS 0.1 % (0-7); HEMATOCRIT 30.8 % (36.0-48.0); HEMOGLOBIN 9.7 g/dL (12-16); IMMATURE GRANULOCYTES 4.5 % (0-5); LYMPHOCYTE ABS# 1.28 10x3/uL (1.18-3.74); LYMPHOCYTES 11.5 % (15-50); MCH 27.9 pg (26.0-34.0); MCHC 31.5 g/dL (31.0-37.0); MCV 88.5 fL (80.0-100.0); MEAN PLATELET VOLUME 12.8 fL (7.4-10.4); MONOCYTES 11.6 % (2-11); NEUTROPHIL ABS# 8.04 10x3/uL (1.56-6.13); NEUTROPHILS 72.1 % (40-80); PLATELET COUNT 185 10x3/uL (130-400); RBC 3.48 10x6/uL (4.00-5.40); RDW 16.2 % (11.5-14.5); WBC 11.1 10x3/uL (4.8-10.8)
[2020-08-10 04:23] LABS: ALBUMIN 1.9 g/dL (3.4-5.0); ANION GAP 13.2 mmol/L (8-16); BILIRUBIN - TOTAL 0.39 mg/dL (0.2-1.3); CALCIUM 8.9 mg/dL (8.5-10.1); CARBON DIOXIDE 29.4 mmol/L (21.0-32.0); CREATININE - SERUM 4.8 mg/dL (0.6-1.3); PHOSPHOROUS 4.4 mg/dL (2.5-4.9); POTASSIUM - SERUM 3.6 mmol/L (3.5-5.1); VANCOMYCIN - RANDOM 25.8 ug/mL (10.0-20.0)
[2020-08-11 04:08] LABS: BASOPHILS 0.5 % (0-2); EOSINOPHILS 5.6 % (0-7); HEMATOCRIT 30.4 % (36.0-48.0); HEMOGLOBIN 9.4 g/dL (12-16); LYMPHOCYTE ABS# 1.17 10x3/uL (1.18-3.74); LYMPHOCYTES 12.4 % (15-50); MCH 27.7 pg (26.0-34.0); MCHC 30.9 g/dL (31.0-37.0); MCV 89.7 fL (80.0-100.0); MEAN PLATELET VOLUME 11.9 fL (7.4-10.4); MONOCYTES 9.2 % (2-11); NEUTROPHIL ABS# 6.16 10x3/uL (1.56-6.13); NEUTROPHILS 65.3 % (40-80); PLATELET COUNT 170 10x3/uL (130-400); RBC 3.39 10x6/uL (4.00-5.40); RDW 16.2 % (11.5-14.5); WBC 9.4 10x3/uL (4.8-10.8)
[2020-08-11 04:31] LABS: ALBUMIN 1.9 g/dL (3.4-5.0); ANION GAP 15.1 mmol/L (8-16); BILIRUBIN - TOTAL 0.45 mg/dL (0.2-1.3); CALCIUM 8.5 mg/dL (8.5-10.1); CARBON DIOXIDE 26.5 mmol/L (21.0-32.0); POTASSIUM - SERUM 3.6 mmol/L (3.5-5.1); PROTEIN - SERUM 6.6 g/dL (6.4-8.2); VANCOMYCIN - RANDOM 24.8 ug/mL (10.0-20.0)
[2020-08-11 04:32] LABS: CREATININE - SERUM 6.7 mg/dL (0.6-1.3)
[2020-08-12 04:47] LABS: HEMOGLOBIN 9.7 g/dL (12-16); LYMPHOCYTE ABS# 1.53 10x3/uL (1.18-3.74); MCH 27.8 pg (26.0-34.0); MCHC 31.3 g/dL (31.0-37.0); MCV 88.8 fL (80.0-100.0); MEAN PLATELET VOLUME 11.6 fL (7.4-10.4); NEUTROPHIL ABS# 5.22 10x3/uL (1.56-6.13); PLATELET COUNT 173 10x3/uL (130-400); RBC 3.49 10x6/uL (4.00-5.40); RDW 15.8 % (11.5-14.5); WBC 11.4 10x3/uL (4.8-10.8)
[2020-08-12 04:57] LABS: ANION GAP 11.1 mmol/L (8-16); BILIRUBIN - TOTAL 0.5 mg/dL (0.2-1.3); CALCIUM 9.1 mg/dL (8.5-10.1); CARBON DIOXIDE 29.1 mmol/L (21.0-32.0); CREATININE - SERUM 5.3 mg/dL (0.6-1.3); PHOSPHOROUS 4.6 mg/dL (2.5-4.9); POTASSIUM - SERUM 3.2 mmol/L (3.5-5.1)
[2020-08-12 05:08] LABS: LYMPHOCYTES 14 % (15-50); MONOCYTES 8 % (2-11); NEUTROPHILS 76 % (40-80); PLATELET ESTIMATE NORMAL; VACUOLES 2+
[2020-08-13 04:59] LABS: BASOPHILS 0.2 % (0-2); EOSINOPHILS 0 % (0-7); HEMATOCRIT 29.6 % (36.0-48.0); HEMOGLOBIN 9.3 g/dL (12-16); LYMPHOCYTE ABS# 1.16 10x3/uL (1.18-3.74); LYMPHOCYTES 10.7 % (15-50); MCH 27.8 pg (26.0-34.0); MCHC 31.4 g/dL (31.0-37.0); MCV 88.6 fL (80.0-100.0); MEAN PLATELET VOLUME 11.5 fL (7.4-10.4); MONOCYTES 6.4 % (2-11); NEUTROPHIL ABS# 8.74 10x3/uL (1.56-6.13); NEUTROPHILS 80.7 % (40-80); PLATELET COUNT 168 10x3/uL (130-400); RBC 3.34 10x6/uL (4.00-5.40); RDW 15.5 % (11.5-14.5); WBC 10.8 10x3/uL (4.8-10.8)
[2020-08-13 05:27] LABS: ANION GAP 13.9 mmol/L (8-16); BILIRUBIN - TOTAL 0.43 mg/dL (0.2-1.3); CALCIUM 8.9 mg/dL (8.5-10.1); CARBON DIOXIDE 26.7 mmol/L (21.0-32.0); POTASSIUM - SERUM 3.6 mmol/L (3.5-5.1); PROTEIN - SERUM 6.8 g/dL (6.4-8.2); VANCOMYCIN - RANDOM 17.2 ug/mL (10.0-20.0)
[2020-08-13 05:29] LABS: CREATININE - SERUM 7.5 mg/dL (0.6-1.3)
[2020-08-13] MEDS ORDERED: VANCOMYCIN 750750 MG IV (09:39)
== END 2020-08-13 13:15 | DRG 871 ==
LOC: D.ER 13:04 → D.M2 14:42
PROVIDERS: Family Medicine; Radiology Vascular & Interventional Radiology; ADMIT Internal Medicine Nephrology
PROC: 5A1D70Z Performance of Urinary Filtration, Intermittent, Less than 6 Hours Per Day (ICD-10-PCS; principal; 2020-07-31)
DX: A41.9 Sepsis, unspecified organism (principal); N18.6 End stage renal disease; I12.0 Hypertensive chronic kidney disease with stage 5 chronic kidney disease or end stage renal disease; M46.26 Osteomyelitis of vertebra, lumbar region; E87.5 Hyperkalemia; Z99.2 Dependence on renal dialysis; Z91.15 Patient's noncompliance with renal dialysis; D63.1 Anemia in chronic kidney disease; B95.2 Enterococcus as the cause of diseases classified elsewhere

== ENCOUNTER → 2020-10-19 10:02 | Outpatient (CLI) | payer MEDICAID ==
[2020-08-07 21:20] VITALS: BMI 25.5
[~2020-10-19 10:02] MED LIST changes: +VANCOMYCIN 750750 MG IV
== END | disposition home or self-care (01) ==
LOC: D.MRI 10-15 13:00
PROVIDERS: ATTEND Internal Medicine Nephrology
DX: M46.44 Discitis, unspecified, thoracic region (principal)